=== PATIENT | female | born 1985 | race Caucasian/White ===

== ENCOUNTER 2021-02-19 15:55 | Emergency (ER) | payer OTHER | END 2021-02-19 17:49 | disposition home or self-care (01) | LOC: JVIRT 15:55 | DX: Z11.52 Encounter for screening for COVID-19 (principal) | CPT/HCPCS: C9803; Q3014-GT; U0003; U0005 ==

== ENCOUNTER 2021-09-30 09:17 | Day surgery (SDC) | payer OTHER ==
[2021-09-30] MEDS ORDERED: IRON SUCROSE INJECTION 200 MG in SODIUM CHLORIDE 100 ML IVPB ONE (10:00)
[2021-09-30 10:07] VITALS: RESP 18; TEMP 98.8
[2021-10-01 07:11] VITALS: BP 121/88; PULSE 86
== END 2021-09-30 10:45 | disposition home or self-care (01) ==
LOC: JINFUSION 09:17
PROVIDERS: ATTEND Internal Medicine
PROC: 3E033GC Introduction of Other Therapeutic Substance into Peripheral Vein, Percutaneous Approach (ICD-10-PCS; principal; 2021-09-30)
DX: D50.9 Iron deficiency anemia, unspecified (principal)
CPT/HCPCS: 96365; J1756

== ENCOUNTER 2021-10-07 09:16 | Day surgery (SDC) | payer OTHER ==
[2021-10-07] MEDS ORDERED: IRON SUCROSE INJECTION 200 MG in SODIUM CHLORIDE 100 ML IVPB ONE (10:00)
[2021-10-07 16:54] VITALS: BP 114/84; PULSE 76; RESP 18; TEMP 98.1
== END 2021-10-07 11:20 | disposition home or self-care (01) ==
LOC: JINFUSION 09:16
PROVIDERS: ATTEND Internal Medicine
PROC: 3E033GC Introduction of Other Therapeutic Substance into Peripheral Vein, Percutaneous Approach (ICD-10-PCS; principal; 2021-10-07)
DX: D50.9 Iron deficiency anemia, unspecified (principal)
CPT/HCPCS: 96365; J1756

== ENCOUNTER 2021-10-14 08:51 | Day surgery (SDC) | payer OTHER ==
[2021-10-14] MEDS ORDERED: IRON SUCROSE INJECTION 200 MG in SODIUM CHLORIDE 100 ML IVPB ONE (10:00)
[2021-10-14 13:52] VITALS: BP 117/82; PULSE 77; RESP 18; TEMP 99
== END 2021-10-14 10:30 | disposition home or self-care (01) ==
LOC: JINFUSION 08:51
PROVIDERS: ATTEND Internal Medicine
PROC: 3E033GC Introduction of Other Therapeutic Substance into Peripheral Vein, Percutaneous Approach (ICD-10-PCS; principal; 2021-10-14)
DX: D50.9 Iron deficiency anemia, unspecified (principal)
CPT/HCPCS: 96365; J1756

== ENCOUNTER 2021-10-21 08:43 | Day surgery (SDC) | payer OTHER ==
[2021-10-21] MEDS ORDERED: IRON SUCROSE INJECTION 200 MG in SODIUM CHLORIDE 100 ML IVPB ONE (10:00)
[2021-10-21 10:07] VITALS: RESP 18; TEMP 98.7
[2021-10-21 14:12] VITALS: BP 113/88; PULSE 85
== END 2021-10-21 10:30 | disposition home or self-care (01) ==
LOC: JINFUSION 08:43 → J7W 08:45 → JINFUSION 10:30
PROVIDERS: ATTEND Internal Medicine
PROC: 3E033GC Introduction of Other Therapeutic Substance into Peripheral Vein, Percutaneous Approach (ICD-10-PCS; principal; 2021-10-21)
DX: D50.9 Iron deficiency anemia, unspecified (principal)
CPT/HCPCS: 96365; J1756

== ENCOUNTER 2021-10-28 08:48 | Day surgery (SDC) | payer OTHER ==
[~2021-10-28 08:48] MED LIST: IRON SUCROSE INJECTION 200 MG in SODIUM CHLORIDE 100 ML IVPB ONE
[2021-10-28 09:41] VITALS: RESP 18; TEMP 98.9
[2021-10-28] MEDS ORDERED: IRON SUCROSE INJECTION 200 MG in SODIUM CHLORIDE 100 ML IVPB ONE (10:00)
[2021-10-28 10:08] VITALS: BP 119/86; PULSE 76
== END 2021-10-28 10:05 | disposition home or self-care (01) ==
LOC: JINFUSION 08:48 → J7W 08:49 → JINFUSION 10:05
PROVIDERS: ATTEND Internal Medicine
PROC: 3E033GC Introduction of Other Therapeutic Substance into Peripheral Vein, Percutaneous Approach (ICD-10-PCS; principal; 2021-10-28)
DX: D50.0 Iron deficiency anemia secondary to blood loss (chronic) (principal)
CPT/HCPCS: 96365; J1756

== ENCOUNTER 2023-03-03 09:30 | Day surgery (SDC) | payer OTHER ==
[2023-03-03 10:58] VITALS: BP 113/76; RESP 18; TEMP 98.6
[2023-03-03 11:05] VITALS: PULSE 78
== END 2023-03-03 11:00 | disposition home or self-care (01) ==
LOC: JONCCHEMO 09:30 → J7W 10:30 → JONCCHEMO 11:00
PROVIDERS: ATTEND Internal Medicine Hematology & Oncology
PROC: 3E033GC Introduction of Other Therapeutic Substance into Peripheral Vein, Percutaneous Approach (ICD-10-PCS; principal; 2023-03-03)
DX: D50.9 Iron deficiency anemia, unspecified (principal)
CPT/HCPCS: 96365; J1756

== ENCOUNTER 2023-03-10 10:10 | Day surgery (SDC) | payer OTHER ==
[2023-03-10 16:26] VITALS: TEMP 98
[2023-03-10 16:29] VITALS: BP 112/82; PULSE 81; RESP 18
== END 2023-03-10 11:30 | disposition home or self-care (01) ==
LOC: JONCNONCHE 10:10 → J7W 11:05 → JONCNONCHE 11:30
PROVIDERS: ATTEND Internal Medicine Hematology & Oncology
PROC: 3E033GC Introduction of Other Therapeutic Substance into Peripheral Vein, Percutaneous Approach (ICD-10-PCS; principal; 2023-03-10)
DX: D50.9 Iron deficiency anemia, unspecified (principal)
CPT/HCPCS: 96402; J1756

== ENCOUNTER 2023-03-17 09:57 | Day surgery (SDC) | payer OTHER ==
[2023-03-17 11:30] VITALS: RESP 18; TEMP 98.7
[2023-03-17 11:31] VITALS: BP 108/70; PULSE 84
== END 2023-03-17 11:00 | disposition home or self-care (01) ==
LOC: JONCNONCHE 09:57 → J7W 09:57 → JONCNONCHE 11:00
PROVIDERS: ATTEND Internal Medicine Hematology & Oncology
PROC: 3E033GC Introduction of Other Therapeutic Substance into Peripheral Vein, Percutaneous Approach (ICD-10-PCS; principal; 2023-03-17)
DX: D50.9 Iron deficiency anemia, unspecified (principal)
CPT/HCPCS: 96365; J1756

== ENCOUNTER 2023-03-24 10:05 | Day surgery (SDC) | payer OTHER ==
[2023-03-24] MEDS ORDERED: IRON SUCROSE INJECTION 200 MG in SODIUM CHLORIDE 100 ML IVPB ONE (10:30)
[2023-03-24 15:56] VITALS: RESP 18; TEMP 97.5
[2023-03-24 15:59] VITALS: BP 111/79; PULSE 75
== END 2023-03-24 11:35 | disposition home or self-care (01) ==
LOC: JONCNONCHE 10:05 → J7W 10:05 → JONCNONCHE 11:35
PROVIDERS: ATTEND Internal Medicine Hematology & Oncology
PROC: 3E033GC Introduction of Other Therapeutic Substance into Peripheral Vein, Percutaneous Approach (ICD-10-PCS; principal; 2023-03-24)
DX: D50.9 Iron deficiency anemia, unspecified (principal)
CPT/HCPCS: 96365; J1756

== ENCOUNTER 2023-03-31 10:03 | Day surgery (SDC) | payer OTHER ==
[~2023-03-31 10:03] MED LIST changes: +IRON SUCROSE COMPLEX 200 MG in SODIUM CHLORIDE 100 ML IVPB ONE; -IRON SUCROSE INJECTION 200 MG in SODIUM CHLORIDE 100 ML IVPB ONE
[2023-03-31 17:19] VITALS: TEMP 98.6
[2023-03-31 17:24] VITALS: BP 115/82; PULSE 70; RESP 18
== END 2023-03-31 11:25 | disposition home or self-care (01) ==
LOC: J7W 10:03 → JONCNONCHE 10:03
PROVIDERS: ATTEND Internal Medicine Hematology & Oncology
PROC: 3E033GC Introduction of Other Therapeutic Substance into Peripheral Vein, Percutaneous Approach (ICD-10-PCS; principal; 2023-03-31)
DX: D50.9 Iron deficiency anemia, unspecified (principal)
CPT/HCPCS: 96365